=== PATIENT | female | born 1945 | race Caucasian/White ===

== ENCOUNTER 2020-11-17 19:46 | Emergency (ER) | payer MEDICARE, SELFPAY ==
--- NOTE | 2020-11-17 | ECG_ITS ---
Test Reason : CHEST PAIN Blood Pressure : / mmHG Vent. Rate : 072 BPM Atrial Rate : 072 BPM P-R Int : 176 ms QRS Dur : 138 ms QT Int : 430 ms P-R-T Axes : 070 -23 122 degrees QTc Int : 470 ms Normal sinus rhythm Left bundle branch block Abnormal ECG When compared with ECG of 28-JUN-2018 14:44, No significant change was found Referred By: Generic ED Physician Electronically Signed By:LEE NGUYỄN
[2020-11-17 20:00] VITALS: BP 159/83; PULSE 82; RESP 16; TEMP 36.4; O2SAT 98; BMI 21.2
== END 2020-11-17 21:49 | disposition left against medical advice (07) ==
PROVIDERS: Emergency Provider Emergency Medicine
DX: R06.02 Shortness of breath (principal); R05 Cough
CPT/HCPCS: 93005; 99283

== ENCOUNTER 2020-12-11 09:48 | Outpatient (REF) | payer MEDICARE, OTHER, SELFPAY ==
[2020-12-11 10:09] LABS: MANUAL DIFF FLAG NO
[2020-12-11 10:20] LABS: Basophils Percent Auto 0.8 % (0-2); Eosinophils Absolute Auto 0.4 X10*3/uL (0.0-0.4); Eosinophils Percent Auto 7.1 % (0-4); Hematocrit 40.7 % (37-47); Hemoglobin 13.6 g/dl (12.0-16.0); Imm Gran Abs Auto 0.01 X10*3/uL (0.00-0.03); Imm Gran Pct Auto 0.2 % (0.0-0.4); Lymphocytes Absolute Auto 1.8 X10*3/uL (1.2-4.9); Mean Corpuscular HGB Conc 33.4 g/dl (31.0-35.0); Mean Corpuscular Hemoglobin 30.6 pg (27.0-33.0); Mean Corpuscular Volume 91.5 fL (80-98); Mean Platelet Volume 9.1 fL (9.4-12.3); Monocytes Absolute Auto 0.4 X10*3/uL (0.1-1.2); Monocytes Percent Auto 7.3 % (2-11); Neutrophils Absolute Auto 2.4 X10*3/uL (2.0-8.3); Neutrophils Percent Auto 48.6 % (45-73); Platelet Count 216 X10*3/uL (160-400); Red Blood Count 4.45 X10*6/uL (4.20-5.50); Red Cell Distribution Width 13.2 % (11.0-16.0); White Blood Count 4.9 X10*3/uL (4.8-10.8)
[2020-12-11 10:49] LABS: Alanine Aminotransferase 13 U/L (0-31); Albumin Level 3.9 g/dL (3.5-5.0); Alkaline Phosphatase 62 U/L (39-117); Anion Gap 9 (12-20); Aspartate Amino Transferase 17 U/L (5-31); Bilirubin Total 0.7 mg/dL (0.0-1.0); Blood Urea Nitrogen 16 mg/dL (9-16); Calcium 9.1 mg/dL (8.4-10.2); Carbon Dioxide 26 mmol/L (22-29); Chloride 108 mmol/L (96-108); Cholesterol 164 mg/dL; Estimated Glomerular Filt Rate > 60; Glucose Fasting 97 mg/dL (60-99); HDL Cholesterol 52 mg/dL; LDL Cholesterol Calculated 102 mg/dl; Potassium 4.3 mmol/L (3.3-5.1); Sodium 139 mmol/L (135-145); Total Protein 6.3 g/dL (6.5-8.0); Triglycerides 54 mg/dL
[2020-12-11 11:02] LABS: TSH reflex Free T4 1.24 uIU/mL (0.32-4.0); Vitamin D 25-OH Total 22.6 ng/mL (>30)
[2020-12-12 07:52] LABS: SARS COV2 IgG Negative (Negative)
[2020-12-12 12:51] LABS: SARS-COV-2 IgG Spike, Semi-Qnt 2.28 index (<1.00)
== END 2020-12-11 09:49 | disposition home or self-care (01) ==
LOC: HO.LAB 09:48
PROVIDERS: PCP Internal Medicine Cardiovascular Disease; Visit Provider Internal Medicine Cardiovascular Disease
DX: Z00.00 Encounter for general adult medical examination without abnormal findings (principal); Z20.822 Contact with and (suspected) exposure to COVID-19; R06.2 Wheezing; E78.01 Familial hypercholesterolemia; I10 Essential (primary) hypertension
CPT/HCPCS: 36415; 80053; 80061; 82306; 84443; 85025; 86769

== ENCOUNTER → 2021-02-26 09:02 | Outpatient (REF) | payer MEDICARE, BC, OTHER, SELFPAY ==
--- NOTE | 2021-02-26 09:30 | CA_ITS ---
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 Low normal LV systolic function with RWMA c/w prior IL and underlying CAD 2. Normal cardiac valvular Doppler 3. Normal RVSP 4. No pericardial effusion Findings Procedure Information Contrast agent, definity, is being given per protocol without apparent complications. Left Ventricle Normal left ventricular cavity size. There is normal left ventricular wall thickness. The left ventricular systolic function is low normal. The visually estimated ejection fraction is between 50-55%. There is paradoxical septal motion consistent with a right ventricular pacemaker. Spectral Doppler is indicative of an impaired relaxation filling pattern. E/E prime ratio is <8, consistent with normal filling pressures. Evidence suggests grade I (mild) diastolic dysfunction. Wall Motion Rest Echo Findings The mid anteroseptal segment is hypokinetic. The inferoseptal wall and apical septum segment are akinetic. The apex segment is dyskinetic. All other scored wall segments showed normal motion. Right Ventricle Normal right ventricular cavity size and systolic function. There is an ICD wire seen in the right ventricle. Atria Both atria are normal in size. Interatrial shunt cannot be excluded. Aortic Valve The aortic valve structure and function is likely normal. There is no aortic valve stenosis. There is no aortic valve regurgitation. Mitral Valve There is mild anterior mitral leaflet thickening. There is trace mitral valve regurgitation. There is no mitral valve stenosis. Pulmonic Valve The pulmonic valve was not well visualized. Tricuspid Valve Likely normal tricuspid valve structure and function. There is trace tricuspid valve regurgitation. The right ventricular systolic pressure is normal. The right ventricular systolic pressure is 25 mmHg. Normal right atrial pressure. There is no evidence of pulmonary hypertension. Great Vessels All visible segments of the aorta are normal in size. The pulmonary artery was not well visualized. Venous The inferior vena cava is normal in size and collapses greater than 50% with inspiration. Pericardium/Pleural There is no evidence of pericardial effusion. Prior Study Comparison No prior study available for comparison. Measurements 2D Linear Measurements IVSd: 1.15 0.6-0.9/0.6-1.0 cm LVIDd: 4.11 3.9-5.3/4.2-5.9 cm LVIDd Index: 2.63 2.4-3.2/2.2-3.1 cm/m2 LVIDs: 2.84 2.0-3.6 cm LVPWd: 0.93 0.7-1.1 cm Ao Root: 2.70 2.1-3.5 cm LA Diam: 3.00 2.7-3.8/3.0-4.0 cm LAIDs Index: 1.92 1.5-2.3 cm/m2 LV Mass: 174.58 67-162/88-224 g LV Mass Index: 111.91 43-95/49-115 g/m2 LVOT Diam: 1.80 3.0+(-)1.3 cm 2D Systolic Function EF 4C: 56.90 >55% Mitral Valve MV Pk E: 0.57 MV PK A: 1.02 MV Decel Time: 236.00 E/A: 0.60 E'Lateral: 3.70 E'Medial: 4.03 E/E' Med: 14.00 E/E' Lat: 15.30 PHT: 69.00 MVA PHT: 3.19 Decel Sevier: 2.40 Aortic Valve AoV Pk Chris: 1.36 AoV Pk Grad: 7.00 LVOT LVOT Pk Chris: 0.95 LVOT Mn Chris: 0.58 LVOT VTI: 0.19 LVOT Pk Grad: 4.00 LVOT Mn Grad: 2.00 LVOT Diam: 1.80 LVOT Area: 2.54 Diastolic Function MV Pk E: 0.57 MV Pk A: 1.02 E/A: 0.60 E'Medial: 4.03 E/E' Med: 14.00 E' Laterial: 3.70 E/E' Lat: 15.30 Right Ventricle TAPSE (mm): 2.32 TVS' Chris: 13.20 Tricuspid Valve TR Pk Chris: 2.36 TR Pk Grad: 22.00 RA Press: 3.00 RVSP: 25.00 Great Vessels Aorta Ao Root-2D: 2.70 2.0-3.7 cm Updated in Other Vendor System with Status of Final Roland Lopez MD electronically signed on 02/26/2021 5:23:59 PM with status of Final
== END ==
LOC: HO.CARD 09:02
PROVIDERS: Visit Provider Internal Medicine Cardiovascular Disease
DX: I42.8 Other cardiomyopathies (principal)
CPT/HCPCS: 93306; Q9957

== ENCOUNTER 2021-03-19 13:34 | Outpatient (REF) | payer MEDICARE, SELFPAY ==
--- NOTE | ~2021-03-19 | CT_ITS ---
EXAMINATION: CT CHEST WITHOUT CONTRAST CLINICAL INFORMATION: Solitary pulmonary nodule. COMPARISON: Previous chest CT 12/24/2018 and PET/CT scan 12/20/2019. TECHNIQUE: Multidetector volumetric CT imaging of the chest was done. Axial MIP volume rendering provided. Sagittal and coronal reformatted images were obtained. This CT examination was performed using dose optimization techniques as appropriate, variously including the following: *Automated exposure control *Adjustment of mA and/or kV according to patient size (this includes techniques or standardized protocols for targeted exams where dose is matched to indication/reason for exam; i.e. extremities or head) *Use of iterative reconstruction technique DLP: 124 mGy-cm FINDINGS: LUNGS: There is evidence of emphysema. There is biapical pleural and parenchymal scarring, left greater than right, that appears unchanged. There is a peripheral or subpleural linear abnormal parenchymal density at the left lung apex (for example axial image 72, series 6) that is unchanged. There is peripheral or subpleural scarring in the anterior left upper lobe (axial image 206, series 6 for example). This is stable and likely related to chest wall radiation. There is a 1.2 x 1.1 cm spiculated left lower lobe nodule (axial image 224, series 6). This has increased in size from 7 mm on the prior chest CT and PET/CT scan. There are numerous small peripheral or subpleural calcified and noncalcified upper lobe nodules or micronodules that are stable. The largest is a 4 mm peripheral or subpleural right upper lobe noncalcified nodule (axial image 87, series 6). No new nodule is seen. MEDIASTINUM: There is evidence of atherosclerotic disease. The heart does not appear enlarged. There is no pericardial effusion. There is a right subclavian dual chamber pacemaker. There are no enlarged hilar or mediastinal lymph nodes. PLEURA: There is no pleural effusion. No pleural mass or thickening. AXILLAE: The left breast has been removed. There are surgical clips in the left axilla. No chest wall mass or enlarged axillary lymph nodes are seen. 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 OSSEOUS STRUCTURES: There are degenerative changes of the spine. No fracture or suspicious bone lesion is seen. CT/CT chest wo con IMPRESSION: Interval increase in the size of the left lower lobe nodule, now measuring 1.1 x 1.2 cm. Appearance is concerning for neoplasm. Emphysema. Stable bilateral upper lobe calcified and noncalcified micronodules. Fleischner guidelines were followed. Findings will be communicated by the [place] work flow pattern fitter Brina Austin
== END 2021-03-19 13:35 | disposition home or self-care (01) ==
LOC: HO.CT 13:34
PROVIDERS: PCP Internal Medicine Cardiovascular Disease; Visit Provider Internal Medicine Cardiovascular Disease
DX: R91.1 Solitary pulmonary nodule (principal)
CPT/HCPCS: 71250

== ENCOUNTER 2021-08-06 12:03 | Outpatient (REF) | payer MEDICARE, BC, SELFPAY ==
[2021-08-06 12:41] LABS: MANUAL DIFF FLAG NO
[2021-08-06 12:54] LABS: Basophils Absolute Auto 0.1 X10*3/uL (0.0-0.2); Basophils Percent Auto 0.7 % (0-2); Eosinophils Absolute Auto 0.2 X10*3/uL (0.0-0.4); Eosinophils Percent Auto 2.6 % (0-4); Hematocrit 42.7 % (37.0-47.0); Imm Gran Abs Auto 0.01 X10*3/uL (0.00-0.03); Imm Gran Pct Auto 0.1 % (0.0-0.4); Lymphocytes Absolute Auto 1.7 X10*3/uL (1.2-4.9); Lymphocytes Percent Auto 24.4 % (20-40); Mean Corpuscular HGB Conc 32.8 g/dl (31.0-35.0); Mean Corpuscular Hemoglobin 30.6 pg (27.0-33.0); Mean Corpuscular Volume 93.2 fL (80.0-98.0); Mean Platelet Volume 8.9 fL (9.4-12.3); Monocytes Absolute Auto 0.6 X10*3/uL (0.1-1.2); Monocytes Percent Auto 7.9 % (2-11); Neutrophils Absolute Auto 4.5 x10*3/uL (2.0-8.3); Neutrophils Percent Auto 64.3 % (45-73); Platelet Count 217 X10*3/uL (160-400); Red Blood Count 4.58 X10*6/uL (4.20-5.50); Red Cell Distribution Width 14.6 % (11.0-16.0); White Blood Count 6.9 X10*3/uL (4.8-10.8)
[2021-08-06 13:19] LABS: Alanine Aminotransferase 12 U/L (0-31); Albumin Level 4.1 g/dL (3.5-5.0); Alkaline Phosphatase 71 U/L (39-117); Anion Gap 13 (12-20); Aspartate Amino Transferase 16 U/L (5-31); Bilirubin Total 0.9 mg/dL (0.0-1.0); Blood Urea Nitrogen 13 mg/dL (9-16); Calcium 9.1 mg/dL (8.4-10.2); Carbon Dioxide 26 mmol/L (22-29); Chloride 104 mmol/L (96-108); Cholesterol 170 mg/dL; Estimated Glomerular Filt Rate > 60; Glucose Random 95 mg/dL (60-115); HDL Cholesterol 62 mg/dL; LDL Cholesterol Calculated 90 mg/dl; Potassium 4.7 mmol/L (3.3-5.1); Sodium 138 mmol/L (135-145); Total Protein 6.7 g/dL (6.5-8.0); Triglycerides 90 mg/dL
[2021-08-06 13:50] LABS: TSH reflex Free T4 0.81 uIU/mL (0.32-4.0); Vitamin D 25-OH Total 22.4 ng/mL (>30)
[2021-08-06 14:08] LABS: Amphetamine Screen Urine Not Detected (Not Detect); Barbiturates, Urine Not Detected (Not Detect); Benzodiazepines Screen Urine Not Detected (Not Detect); Cannabinoid Screen Urine Not Detected (Not Detect); Cocaine Screen Urine Not Detected (Not Detect); Fentanyl, urine Not Detected (Not Detect); Opiate Screen Urine POSITIVE (Not Detect); Phencyclidine Screen Urine Not Detected (Not Detect)
[2021-08-12 08:43] LABS: SARS COV2 IgG Negative
== END 2021-08-06 12:04 | disposition home or self-care (01) ==
LOC: HO.LAB 12:03
PROVIDERS: PCP Internal Medicine Cardiovascular Disease; Visit Provider Internal Medicine Cardiovascular Disease
DX: Z00.00 Encounter for general adult medical examination without abnormal findings (principal); E78.01 Familial hypercholesterolemia; R06.2 Wheezing; F11.20 Opioid dependence, uncomplicated; E55.9 Vitamin D deficiency, unspecified; Z01.84 Encounter for antibody response examination
CPT/HCPCS: 36415; 80053; 80061; 80307; 82306; 84443; 85025; 86769